=== PATIENT | female | born 1940 | race Caucasian/White ===

== ENCOUNTER 2017-02-13 09:35 | Emergency (ER) | payer MEDICARE ==
--- NOTE | 2017-02-13 10:58 | RAD ---
2 VIEW CHEST: Date: 02/13/17 COMPARISON: Single view chest dated 11/04/16. INDICATION: Dyspnea with cough and fever. FINDINGS: There is patchy left basilar opacity. Cardiac silhouette is prominent. There is also prominence of t he central pulmonary vasculature. There is degenerative change and vascular calcification. IMPRESSION: Patchy left basilar opacity and evidence of vascular congestion. Correlate for evidence of CHF. As clinically necessary, imaging follow-up may be obtained. POS: [facility]
[2017-02-13] MEDS ORDERED: traMADol HCl 50 MG TAB ONE (11:02)
[2017-02-13] MEDS ORDERED: AMOXicillin 250 MG CAP ONE (11:02)
[2017-02-13] MEDS ORDERED: Benzonatate 100 MG CAP ONE (11:02)
== END 2017-02-13 11:09 | disposition home or self-care (01) ==
LOC: MADERS 09:35
DX: J20.9 Acute bronchitis, unspecified (principal); I13.0 Hypertensive heart and chronic kidney disease with heart failure and stage 1 through stage 4 chronic kidney disease, or unspecified chronic kidney disease; N18.3 Chronic kidney disease, stage 3 (moderate); I50.9 Heart failure, unspecified; E11.9 Type 2 diabetes mellitus without complications; K21.9 Gastro-esophageal reflux disease without esophagitis; E78.00 Pure hypercholesterolemia, unspecified
CPT/HCPCS: 71020

== ENCOUNTER 2017-09-19 18:38 | Emergency (ER) | payer MEDICARE ==
[~2017-09-19 18:38] MED LIST: Sodium Chloride 0.9% 100 ML BAG ONE
[2017-09-19] MEDS ORDERED: Morphine 4 MG/ML Carpuject ONE (19:11)
[2017-09-19] MEDS ORDERED: Ondansetron HCl/PF 4 MG/2 ML Vial ONE (19:12)
[2017-09-19] MEDS ORDERED: Ketorolac Tromethamine 30 MG/ML VIAL ONE (19:12)
[2017-09-19 19:26] LABS: INR-International Normal Ratio 1.4
[2017-09-19 19:37] LABS: ALT (SGPT) 18 U/L (8-55); AST (SGOT) 14 U/L (5-34); Albumin 3.2 g/dL (3.4-4.8); Alkaline Phosphatase 88 U/L (40-150); Anion Gap 17 mmol/L (10-20); BUN (Urea Nitrogen) 47 mg/dL (9.8-20.1); Bilirubin, Total 1.1 mg/dL (0.2-1.2); Calc. Creatinine Clearance 0 mL/min (70-130); Calcium 8.9 mg/dL (7.8-10.44); Carbon Dioxide 21 mmol/L (23-31); Chloride 103 mmol/L (98-107); Estimated GFR-MDRD 17; Globulin 3.2 g/dL (2.4-3.5); Glucose 138 mg/dL (83-110); Protein, Total 6.4 g/dL (6.0-8.3); Sodium 136 mmol/L (136-145)
[2017-09-19 19:39] LABS: CKMB 0.7 ng/mL (0-6.6); Troponin I 0.045 ng/mL (< 0.028)
[2017-09-19 19:45] LABS: CK (CPK) 23 U/L (29-168)
[2017-09-19 19:46] LABS: Hemoglobin 15.2 g/dL (12.0-16.0); MDiff Complete? YES; Mean Corpuscular HGB CONC 33.1 g/dL (32.0-36.0); Mean Corpuscular Hemoglobin 29.5 pg (27.0-31.0); Mean Corpuscular Volume 89.2 fl (81.0-99.0); Mean Platelet Volume 7.4 fL (7.4-10.4); Platelet Count 143 thou/uL (130-400); RBC Distribution Width 14.1 % (11.5-14.5); Red Blood Cell (RBC) Count 5.14 mill/uL (4.20-5.40); White Blood Cell (WBC) Count 22.8 thou/uL (4.8-10.8)
[2017-09-19 19:47] LABS: Band 13 % (5-11); Eosinophils 1 % (0-10); Lymphocytes 8 % (21-51); Macrocytosis SLIGHT = 6-15 cells (100X) (0-5/hpf); Microcytosis SLIGHT = 6-15 cells (100X) (0-5/hpf); Monocytes 3 % (0-10); Neutrophil 75 % (42-75); PLT Morphology Comment Appears Adequate; RBC Morphology ABNORMAL
[2017-09-19 20:05] LABS: Lipase Less than 4 U/L (8-78)
[2017-09-19 20:06] LABS: CRP (Inflammatory) 40.24 mg/dL (= or < 0.5)
[2017-09-19] MEDS ORDERED: Piperacillin/Tazobactam 3.375 GM VIAL ONE (20:27)
--- NOTE | 2017-09-19 20:28 | CT ---
EXAM: ABDOMEN CT WITHOUT CONTRAST PELVIC CT WITHOUT CONTRAST 09/19/17 COMPARISON: 11/03/15 TECHNIQUE: An abdomen and pelvic CT are performed without contrast. Coronal reformatted images are submitted fo r interpretation. HISTORY: Right flank pain. Right lower quadrant pain. FINDINGS: ABDOMEN CT: Consolidation in the right lower lobe with adjacent small right sided pleural effusion. Heart size i s within normal limits. No significant pericardial fluid. The descending thoracic aorta and abdomina l aorta have an overall normal caliber. 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 Gallbladder appears to be surgically absent. Limited evaluation of the solid organs due to lack of IV contrast. Grossly, no solid organ abnormali ty. No gastrohepatic, retrocrural or periportal lymphadenopathy. There is fluid in the right pericolic g utter. No mesenteric mass, lymphadenopathy, or free air. Bilaterally, no nephrolithiasis or perinephric fat stranding. With regard to the left intra and extr arenal collecting system, no evidence of obstruction. There is dilatation of the right renal pelvis and right calices. There is also dilatation and fat stranding along the proximal and mid right urete r. The distal ureter is mildly prominent. There is a punctate 2.6 mm calcification along the distal right ureter. Calcification is just proximal to the right ureterovesicular junction. Limited evaluation of the alimentary canal due to the lack of oral contrast. Multiple normal caliber small bowel loops. No evidence of small bowel obstruction. Ileocecal junction is normal. Appendix i s difficult to appreciate. No inflammation at the cecal apex. There is mucosal prominence involving the distal ascending colon and proximal transverse colon. There is also mucosal prominence involving the descending colon, sigmoid colon. Diverticula are present. No definite evidence of diverticuliti s. In the central abdominal mesentery, there is a fluid collection with an air fluid level measuring 4. 1 x 4.1 cm. There is no evidence of adjacent inflammatory change. This air fluid level may represent a segment of prominent small bowel. No associated obstruction. Limited evaluation due to technique. PELVIC CT: No calcifications in the urinary bladder. The uterus and adnexal structures are unremarkable. No pel rachel mass, lymphadenopathy, free air or free fluid. There are no lytic or blastic lesions in the osseous structures. There are degenerative changes in t he lumbar spine. IMPRESSION: 1. Mild to moderate right sided obstructive uropathy secondary to a 2.6 mm calculus in the dist al right ureter. 2. Nonspecific mucosal thickening involving the right hemicolon. Correlate for a focal colitis. 3. Mucosal prominence without active inflammation involving the descending colon and sigmoid co david. Mucosal prominence is presumed to be due to remote bouts of diverticulitis. Nonemergent colonos copy is recommended. 4. Air fluid level in the midline of the abdomen, which may be associated with a segment of sma ll bowel. No obvious adjacent mesenteric inflammatory changes. Possibility of a small infected fluid collection cannot be completely excluded. Clinical correlation is essential. Followup imaging with oral contrast administration can be performed based upon clinical suspicion. POS: [facility]
[2017-09-19 21:03] LABS: Bilirubin Small (Negative); Blood, Urine Small (Negative); Glucose, Urine (Dipstick) Negative (Negative); Leukocyte Trace (Negative); Nitrite Negative (Negative); Protein, Urine (Dipstick) 100 mg/dL (Neg-Trace)
[2017-09-19 21:08] LABS: Clarity Hazy (Clear)
[2017-09-19 21:09] LABS: Bacteria/HPF None Seen HPF (None Seen); Squamous Epithelial 0-3 HPF (0-3)
[2017-09-19 21:10] LABS: Other Microscopic Description 2+ Amorph. Sed.
--- NOTE | 2017-09-19 21:11 | RAD ---
EXAM: ONE VIEW CHEST 09/19/17 COMPARISON: 02/13/2017, 11/03/2015. HISTORY: Pain. FINDINGS: Atherosclerosis of the aorta. Upper normal cardiac silhouette. Pulmonary vessels are slightly promin ent. Bibasilar interstitial opacities due to small left sided pleural effusion. No pneumothorax. IMPRESSION: Congestive heart failure. POS: [facility]
[2017-09-19] MEDS ORDERED: Fentanyl 100 MCG/2 ML VIAL ONE (21:41)
== END 2017-09-19 22:03 | disposition short-term general hospital (02) ==
LOC: MADERS 18:38
DX: J18.9 Pneumonia, unspecified organism (principal); L02.211 Cutaneous abscess of abdominal wall; N20.1 Calculus of ureter; E11.22 Type 2 diabetes mellitus with diabetic chronic kidney disease; E66.9 Obesity, unspecified; E78.00 Pure hypercholesterolemia, unspecified; I12.9 Hypertensive chronic kidney disease with stage 1 through stage 4 chronic kidney disease, or unspecified chronic kidney disease; K21.9 Gastro-esophageal reflux disease without esophagitis; N18.3 Chronic kidney disease, stage 3 (moderate); Z79.82 Long term (current) use of aspirin; Z79.84 Long term (current) use of oral hypoglycemic drugs; Z79.899 Other long term (current) drug therapy
CPT/HCPCS: 71010; 74176; 80053; 81003; 81015; 82150; 82553; 83605; 83690; 84484; 85025; 85610; 85730; 86140; 87077; 87086; 87186; 96361; 96365; 96375; A4353; J1885; J2270; J2405; J2543; J3010; J7050; J7620

== ENCOUNTER 2021-02-05 14:18 | Emergency (ER) | payer MEDICARE ==
[2021-02-05] MEDS ORDERED: Ketorolac Tromethamine 60 MG/2 ML VIAL ONE (15:14)
[2021-02-05] MEDS ORDERED: Dexamethasone 10 MG/ML VIAL ONE (15:14)
[2021-02-05] MEDS ORDERED: Cyclobenzaprine 10 MG TAB ONE (18:37)
== END 2021-02-05 18:55 | disposition home or self-care (01) ==
LOC: MADERS 14:18
DX: M54.42 Lumbago with sciatica, left side (principal); E11.9 Type 2 diabetes mellitus without complications; K21.9 Gastro-esophageal reflux disease without esophagitis; I10 Essential (primary) hypertension; E66.9 Obesity, unspecified; E78.00 Pure hypercholesterolemia, unspecified; Z79.84 Long term (current) use of oral hypoglycemic drugs; Z79.82 Long term (current) use of aspirin; Z79.899 Other long term (current) drug therapy
CPT/HCPCS: 96372; 99283; J1100; J1885